=== PATIENT | male | born 1970 | race Caucasian/White ===

== ENCOUNTER 2019-12-03 22:00 | Emergency (ER) | payer OTHER, SELFPAY ==
[2019-12-03 22:04] VITALS: BP 176/94; PULSE 123; RESP 18; TEMP 37.6; O2SAT 96
--- NOTE | 2019-12-03 22:22 | ED.SKABFB ---
HPI - Skin/Abscess/Foreign Bdy General Chief complaint: Skin/Abscess/Foreign Body Stated complaint: fever from cellulitis Time Seen by Provider: 12/03/19 22:11 History of Present Illness HPI narrative: He began treatemnt for right lower leg cellulitis on 11/22. He was being treated with bactrim. It seems to be improving. Today he had a slight temperture elevation to 100.0. And he noted that he still had a little pain and swelling to the ankle. He took his last dose of bactrim this morning. Related Data Home Medications Medication Instructions Recorded Confirmed carbamazepine mg PO 12/03/19 Allergies Allergy/AdvReac Type Severity Reaction Status Date / Time No Known Allergies Allergy Verified 12/03/19 22:09 Review of Systems Review of Systems: All systems reviewed & are unremarkable except as noted in HPI and below Constitutional: Constitutional: Reports fever(s) ENT: Denies sore throat Cardiovascular: Cardiovascular: Denies chest pain Respiratory: Respiratory: Denies cough and Denies dyspnea Gastrointestinal: Gastrointestinal: Denies abdominal pain, Denies nausea and Denies vomiting Genitourinary: Genitourinary: Denies dysuria Integumentary/Breasts: Skin/Breast: Reports rash Neurologic: Denies numbness and Denies weakness Exam Const: General: healthy appearing, no acute distress and alert Orientation/consciousness: patient oriented x3 HENMT: Head: normal to inspection Resp: Effort & Inspection: normal respiratory effort Auscultation: clear to auscultation bilaterally Cardio: Rate: regular rate Rhythm: regular rhythm Skin: Other: Minimal induration and hyperpigmentation to right ankle Neuro: General: patient oriented x3 Speech: normal speech Extrem: General: no edema Course Vital Signs Vital signs: Vital Signs Temperature 37.6 C 12/03/19 22:04 Pulse Rate 123 H 12/03/19 22:04 Respiratory Rate 18 12/03/19 22:04 Blood Pressure 176/94 H 12/03/19 22:04 Pulse Oximetry 96 12/03/19 22:04 Temperature 36.2 C L 12/04/19 00:37 Pulse Rate 81 12/04/19 00:37 Respiratory Rate 19 12/04/19 00:37 Blood Pressure 150/64 H 12/04/19 00:37 Pulse Oximetry 100 12/04/19 00:37 Procedures Other Procedure Procedure 1: Other Procedure: Bedside ultrasound No fluid pocket in right ankle Right Femoral and politeal veins fully compressible No DVT MDM - Skin/Abscess/Foreign Bdy MDM Narrative Medical decision making narrative: I discussed hospital admission for failure of treatment. He said that he would prefer to try another round of oral antibiotics. Medical Records Attestation: I reviewed the patient's medical records. Discharge Plan Discharge Clinical Impression: Cellulitis Qualifiers: Site of cellulitis: extremity Site of cellulitis of extremity: lower extremity Laterality: right Qualified Code(s): L03.115 - Cellulitis of right lower limb Patient Disposition: Home, Self-Care Condition: Stable Instructions: Antibiotic Form, Cellulitis (ED) Prescriptions: New cephalexin [Keflex] 500 mg capsule 500 mg PO Q8H Qty: 30 RF: 0 No Action carbamazepine 100 mg Capsule, Er Multiphase 12 Hr PO RF: 0 Follow-up/Referrals: PHYSICIAN,SUPERVISOR [facility] [Primary Care Provider] - Discharge Date/Time: 12/04/19 00:38
[2019-12-03] MEDS: CEPHALEXIN 500 MG CAPSULE PO (22:44)
[2019-12-04 00:11] VITALS: BP 141/79; PULSE 79; RESP 19; TEMP 36.2; O2SAT 100
[2019-12-04 00:37] VITALS: BP 150/64; PULSE 81; RESP 19; TEMP 36.2; O2SAT 100
== END 2019-12-04 00:38 | disposition home or self-care (01) ==
PROVIDERS: Emergency Provider Emergency Medicine
DX: L03.115 Cellulitis of right lower limb (principal)
CPT/HCPCS: 99283; A9270

== ENCOUNTER 2022-11-26 10:22 | Emergency (ER) | payer OTHER, SELFPAY ==
--- NOTE | ~2022-11-26 | CT_ITS ---
EXAMINATION: CT cervical spine wo con DATE: 11/26/2022 11:10 INDICATION: Neck pain post fall TECHNIQUE: Computed tomography (CT) of the cervical spine was performed without intravenous contrast. Automated exposure control and iterative reconstruction technique were employed. The dose-length pro duct was 521.60 mGy-cm. COMPARISON: None FINDINGS: Alignment is normal. Vertebral body heights are normal. No fracture. Mild disc height loss at C4-C5 w ith associated central disc extrusion with disc material extending a few millimeters cephalad to the level of the inferior endplate of C4 which results in mild central canal stenosis at this level. Adair tional small disc bulge with mild central canal stenosis at C3-C4. Small anterior endplate osteophyte s at C5-C6 and C6-C7. Multilevel mild bilateral uncovertebral osteoarthritis. Severe facet osteoarthr itis these contributing to moderate neural foraminal stenosis on the left at C4-C5 and moderate sever ity osteoarthritis with associated mild neural foraminal stenosis at a few additional levels on both the left and right. Visualized apices of lungs are clear. Cervical soft tissues are unremarkable. IMPRESSION: 1. Mild cervical spondylosis. No acute osseous abnormality. Reviewed, dictated and finalized at location A.
--- NOTE | ~2022-11-26 | CT_ITS ---
EXAMINATION: CT shoulder LT wo con DATE: 11/26/2022 11:10 INDICATION: Left scapular fracture TECHNIQUE: High resolution computed tomography (CT) of the left shoulder was performed without intrav enous contrast. Additional sagittal and coronal reconstructions were performed. Automated exposure co ntrol and iterative reconstruction technique were employed. The dose-length product was 490.65 mGy-cm . COMPARISON: None FINDINGS: Corticated chronic appearing small corticated bone fragment at the right and left acromioclavicular j oint which could represent sequela of prior trauma or distal clavicle resection. Suture anchor at the junction of the anterosuperior glenoid and base of the coracoid process which could be related to pr ior labral repair. Correlate with surgical history. There is a nondisplaced extra-articular fracture originating at the inferior neck of the glenoid and extending into the lateral half of the scapular b karen. No intra-articular extension. There is an additional displaced acute fracture of the mid left cl avicular diaphysis. Acute displaced fractures of the posterior left second and third ribs. Atelectasi s related to expiratory phase of imaging in the visualized portions of the lungs. Small pneumatocele in the superior segment of the left lower lobe. No evident post traumatic pulmonary contusion/hemorrh age, pneumothorax or evident pleural effusion. IMPRESSION: 1. Acute nondisplaced fracture of the lateral side of the scapular body extending to the inferior nec k of the glenoid. 2. Acute minimally displaced mid diaphyseal fracture of the left clavicle. 3. Acute displaced fractures of the posterior left second and third ribs without evident associated p ulmonary injury or pneumothorax. 4. Widening of the left acromioclavicular joint likely sequela of old trauma or distal clavicle resec tion and suture anchor at the anterosuperior glenoid which may be related to prior labral repair. Cor relate with surgical history. Reviewed, dictated and finalized at location A. IMPRESSION: 1. Acute nondisplaced fracture of the lateral side of the scapular body extendi ng to the inferior neck of the glenoid. 2. Acute minimally displaced mid diaphyseal fracture of the left clavicle. 3. Acute displaced fractures of the posterior left second and third ribs withou t evident associated pulmonary injury or pneumothorax. 4. Widening of the left acromioclavicular joint likely sequela of old trauma or distal clavicle resection and suture anchor at the anterosuperior glenoid whic h may be related to prior labral repair. Correlate with surgical history.
--- NOTE | ~2022-11-26 | XR_ITS ---
EXAMINATION: XR shoulder LT min 2V DATE: 11/26/2022 10:41 INDICATION: Left shoulder pain post fall TECHNIQUE: AP internally rotated, AP oblique externally rotated and transscapular Y views of the left shoulder were obtained. COMPARISON: None FINDINGS: No fracture. There is widening of the left acromioclavicular joint consistent with age-indeterminate acromioclavicular joint separation. Marginal osteophytes at the acromioclavicular joint consistent wi th likely moderate osteoarthritis. Mild osteoarthritis at the left glenohumeral joint. Suture anchor at the junction of the glenoid and base of the acromion which may be related to prior labral repair. Soft tissues are unremarkable. Visualized portion of the lungs are clear. IMPRESSION: Widening of the left acromioclavicular joint consistent with age-indeterminate acromioclavicular join t separation. Correlate with clinical history and for point tenderness at this location. No fracture. Reviewed, dictated and finalized at location A. IMPRESSION: Widening of the left acromioclavicular joint consistent with age-indeterminate acromioclavicular joint separation. Correlate with clinical history and for poi nt tenderness at this location. No fracture.
--- NOTE | ~2022-11-26 | CT_ITS ---
EXAMINATION: CT brain wo con DATE: 11/26/2022 11:10 INDICATION: Head injury TECHNIQUE: Computed tomography (CT) of the head was performed without intravenous contrast. Sagittal and coronal reconstructions were performed. The mA was adjusted according to patient size. Iterative reconstruction technique was employed. The dose-length product was 681.00 mGy-cm. COMPARISON: None FINDINGS: No fracture. No acute intracranial hemorrhage, acute infarction or abnormal extra axial fluid collect ion. Ventricles are normal and symmetric. No mass/mass effect. The orbits, paranasal sinuses and mast oid air cells are normal. IMPRESSION: 1. Normal brain. No fracture or acute intracranial process. Reviewed, dictated and finalized at location A.
[2022-11-26 10:23] VITALS: BP 136/109; PULSE 74; RESP 18; TEMP 36.6; O2SAT 97
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
[2022-11-26 10:26] VITALS: BP 136/109; PULSE 71; RESP 21; O2SAT 95
[2022-11-26 10:31] VITALS: BP 127/77; PULSE 70; RESP 17; O2SAT 96
[2022-11-26 10:46] VITALS: BP 119/82; PULSE 69; RESP 19; O2SAT 98
[2022-11-26] MEDS: HYDROmorphone HCL INJ (*CRX) 1 MG/ML SYR 0.5 MG IV PUSH (11:53)
[2022-11-26] MEDS: CYCLOBENZAPRINE HCL 10 MG TABLET PO (12:26)
[2022-11-26] MEDS: TETANUS,DIPHTHERIA,AC PERTUSSIS ADULT (0.5 ML) BOOSTRIX IM (13:14)
--- NOTE | 2022-11-26 13:22 | PC.NURSE ---
Pt did not want shoulder immobilzer preferred a sling due to less pain.
== END 2022-11-26 13:25 | disposition home or self-care (01) ==
PROVIDERS: Emergency Provider Emergency Medicine; PCP Nurse Practitioner
DX: S22.42XA Multiple fractures of ribs, left side, initial encounter for closed fracture (principal); S42.115A Nondisplaced fracture of body of scapula, left shoulder, initial encounter for closed fracture; S42.022A Displaced fracture of shaft of left clavicle, initial encounter for closed fracture; Z23 Encounter for immunization; M47.812 Spondylosis without myelopathy or radiculopathy, cervical region; V18.0XXA Pedal cycle driver injured in noncollision transport accident in nontraffic accident, initial encounter
CPT/HCPCS: 70450; 72125; 73030; 73200; 90471; 90715; 96374; 99284; A4565; A9270; J1170